=== PATIENT | male | born 1995 | race Two or more races ===

== ENCOUNTER 2020-05-23 20:00 | Emergency (ER) | payer SELFPAY ==
[~2020-05-23] VITALS: Ht 170.2 cm; Wt 106.6 kg
--- NOTE | 2020-05-23 20:06 | NUR ---
ED Nurse Note: Patient brought in by ambulance [id number] from home d/t abdominal and left sided chest pain, patient states it hurts to breathe and reports he was sleeping and was awoken by abdominal and chest pain. Per EMS, patient was seen at [facility] yesterday for the same thing and was discharged home. Patient aao x 4 and ambulatory with steady gait. Patient rates abdominal and chest pain at 8/10, unable to describe quality of pain. Patient changed into gown and placed on desk monitor. No acute distress noted during assessment.
[2020-05-23 20:08] VITALS: BP 132/78
--- NOTE | 2020-05-23 20:11 | Emergency Room Report ---
History of Present Illness General Chief Complaint: Chest Pain Source: Patient Present Illness HPI Patient presents with left-sided chest pain rating up into his neck. He also feels nodularity in his chest wall. He was evaluated at [facility] yesterday and they said nothing was wrong. No treatment was recommended. Patient has trouble sometimes swallowing. He denies fevers or chills. He denies productive cough. There is no nausea, vomiting or diarrhea. No skin rashes. No calf pain or edema. He is stressed at his work and working extra amounts at this time. The patient rates his he rates his pain 8/10. Is somewhat pleuritic , positional and worsened when the chest wall is palpated. There is some neck pain. It is unclear whether this comes from the chest or is present on its own on the left-hand side. The patient does drink alcohol but not daily. Risk factors for cardiac disease: None known No palpitations, nausea, vomiting, diarrhea, dysuria, abdominal pain, shortness of breath, joint pain, rashes, depression, visual changes, dizziness, headache. Allergies: Coded Allergies: No Known Allergies (Unverified , 05/23/20) COVID-19 Screening Contact w/high risk pt: No Experienced COVID-19 symptoms?: No COVID-19 Testing performed ALUMINUM POOL INSTALLER: No Patient History Past Medical History: see triage record Social History: Reports: alcohol use; Denies: smoking, drug use Social History Narrative Works in a kitchen Reviewed Nursing Documentation: PMH: Agreed; PSxH: Agreed Nursing Documentation-PMH Past Medical History: No Stated History Review of Systems All Other Systems: negative except mentioned in HPI Physical Exam Vital Signs Date Time Temp Pulse Resp B/P (MAP) Pulse Ox O2 Delivery O2 Flow Rate FiO2 05/23/20 19:55 98.4 110 20 140/80 (100) 99 Room Air Sp02 EP Interpretation: reviewed, normal General Appearance: well appearing, no apparent distress, GCS 15, non-toxic Head: normocephalic, atraumatic Eyes: bilateral eye normal inspection, bilateral eye PERRL, bilateral eye EOMI ENT: moist mucus membranes Neck: supple Respiratory: lungs clear, normal breath sounds, other - Chest wall tenderness which re-creates the pain with palpation, minimal gynecomastia Cardiovascular #1: no edema, no JVD, tachycardia Cardiovascular #2: 2+ radial (L) Gastrointestinal: normal inspection, normal bowel sounds, non tender, no mass, non-distended Genitourinary: no CVA tenderness Musculoskeletal: back normal, normal range of motion, no calf tenderness, gait/ station normal Neurologic: alert, oriented x3, grossly normal Psychiatric: anxious - But calm Skin: no rash, warm/dry, other - tattoos Medical Decision Making Diagnostic Impression: Primary Impression: Costochondritis, acute Additional Impression: Sinus tachycardia ER Course White count slightly elevated. Patient presents with left-sided chest pain and neck pain. Risk factors are low however we need to exclude cardiac cause, pulmonary bolus, costochondritis, gastritis amongst others. Evaluation with EKG , chest x-ray, soft tissue x-ray of the neck and labs. Patient treated with Reglan and Benadryl initially along with Pepcid. Based on history and clinical exam pulmonary embolus is extremely unlikely. EKG sinus tachycardia otherwise normal EKG. normal troponin. Minimally elevated CPK. Glucose 169. Patient with repeat evaluation and resolution of chest pain with treatment. Discussed findings with patient. Patient given copies of x-rays of the chest, soft tissue neck, EKG and labs. He was advised to follow-up. He states he does not have insurance and was advised to follow-up at the [facility]. No medical emergency at this time. The patient still had sinus tachycardia at discharge. This was discussed with the patient. He states he feels it is due to the lack of rest and exhaustion. Reconsideration of pulmonary embolus however patient saturations 99% and history is against being a pulmonary embolus. Tachycardia improved on discharge. Patient stable for outpatient observation and treatment. Laboratory Tests Test 05/23/20 20:13 05/23/20 20:25 White Blood Count 13.4 K/UL (4.8-10.8) H Red Blood Count 4.94 M/UL (4.70-6.10) Hemoglobin 15.0 G/DL (14.2-18.0) Hematocrit 44.4 % (42.0-52.0) Mean Corpuscular Volume 90 FL (80-99) Mean Corpuscular Hemoglobin 30.4 PG (27.0-31.0) Mean Corpuscular Hemoglobin Concent 33.8 G/DL (32.0-36.0) Red Cell Distribution Width 12.3 % (11.6-14.8) Platelet Count 273 K/UL (150-450) Mean Platelet Volume 7.7 FL (6.5-10.1) Neutrophils (%) (Auto) 54.3 % (45.0-75.0) Lymphocytes (%) (Auto) 37.6 % (20.0-45.0) Monocytes (%) (Auto) 4.6 % (1.0-10.0) Eosinophils (%) (Auto) 2.1 % (0.0-3.0) Basophils (%) (Auto) 1.4 % (0.0-2.0) Prothrombin Time 10.7 SEC (9.30-11.50) Prothrombin Time INR 1.0 (0.9-1.1) Activated Partial Thromboplast Time 20 SEC (23-33) L Sodium Level 139 MMOL/L (136-145) Potassium Level 3.8 MMOL/L (3.5-5.1) Chloride Level 104 MMOL/L (98-107) Carbon Dioxide Level 25 MMOL/L (21-32) Anion Gap 10 mmol/L (5-15) Blood Urea Nitrogen 17 mg/dL (7-18) Creatinine 1.3 MG/DL (0.55-1.30) Estimated Glomerular Filtration Rate > 60 mL/min (>60) Glucose Level 169 MG/DL (74-106) H Calcium Level 9.3 MG/DL (8.5-10.1) Total Bilirubin 0.3 MG/DL (0.2-1.0) Aspartate Amino Transferase (AST) 24 U/L (15-37) Alanine Aminotransferase (ALT) 40 U/L (12-78) Alkaline Phosphatase 95 U/L (46-116) Total Creatine Kinase 360 U/L (26-308) H Troponin I 0.000 ng/mL (0.000-0.056) Pro-B-Type Natriuretic Peptide 8 pg/mL (0-125) Total Protein 7.5 G/DL (6.4-8.2) Albumin 4.2 G/DL (3.4-5.0) Globulin 3.3 g/dL Albumin/Globulin Ratio 1.3 (1.0-2.7) Urine Color Yellow Urine Appearance Clear Urine pH 6 (4.5-8.0) Urine Specific [place] 1.025 (1.005-1.035) Urine Protein 2+ (NEGATIVE) H Urine Glucose (UA) Negative (NEGATIVE) Urine Ketones 1+ (NEGATIVE) H Urine Blood Negative (NEGATIVE) Urine Nitrite Negative (NEGATIVE) Urine Bilirubin Negative (NEGATIVE) Urine Urobilinogen Normal MG/DL (0.0-1.0) Urine Leukocyte Esterase Negative (NEGATIVE) Urine RBC 0 /HPF (0 - 0) Urine WBC 0-2 /HPF (0 - 0) Urine Squamous Epithelial Cells Occasional /LPF Urine Amorphous Sediment Many /LPF (NONE) H Urine Bacteria Few /HPF (NONE) Urine Opiates Screen Negative (NEGATIVE) Urine Barbiturates Screen Negative (NEGATIVE) Phencyclidine (PCP) Screen Negative (NEGATIVE) Urine Amphetamines Screen Negative (NEGATIVE) Urine Benzodiazepines Screen Negative (NEGATIVE) Urine Cocaine Screen Negative (NEGATIVE) Urine Marijuana (THC) Screen Negative (NEGATIVE) EKG Diagnostic Results Rate: tachycardiac Rhythm: NSR ST Segments: no acute changes Rhythm Strip Diag. Results Rhythm: no PVC's, no ectopy, other - Sinus tachycardia 108 Chest X-Ray Diagnostic Results Chest X-Ray Diagnostic Results : Chest X-Ray Ordered: Yes # of Views/Limited/Complete: 1 View Indication: Chest Pain EP Interpretation: Yes Interpretation: no consolidation, no effusion, no pneumothorax Impression: No acute disease Electronically Signed by: Electronically signed by Shemar Jim MD Other X-Ray Diagnostic Results Other X-Ray Diagnostic Results : X-Ray ordered: Soft tissue neck # of Views/Limited Vs Complete: 2 View Interpretation: no dislocation, no soft tissue swelling, no fractures, other - Normal airway Impression: No acute disease Electronically Signed by: Electronically signed by Shemar Jim MD Last Vital Signs Date Time Temp Pulse Resp B/P (MAP) Pulse Ox O2 Delivery O2 Flow Rate FiO2 05/23/20 23:10 98.2 102 24 120/53 100 Room Air Status: improved Disposition: HOME, SELF-CARE Condition: Improved Scripts Ibuprofen* (MOTRIN*) 600 Mg Tablet 600 MG ORAL Q6H PRN for FOR PAIN, #20 TAB 0 Refills Prov: Shemar Jim MD 05/23/20 Shemar Jim MD May 23, 2020 20:11
--- NOTE | 2020-05-23 20:11 | NUR ---
ED Nurse Note: Patient reports nausea, denies vomiting and diarrhea.
[2020-05-23] MEDS ORDERED: Metoclopramide 10mg/2ml Inj IVP ONE (20:15)
[2020-05-23] MEDS ORDERED: DiphenhydrAMINE 50mg/ml Inj IVP ONE (20:15)
[2020-05-23 20:37] LABS: BASOPHILS % (AUTO) 1.4 % (0.0-2.0); EOSINOPHILS % (AUTO) 2.1 % (0.0-3.0); HEMATOCRIT 44.4 % (42.0-52.0); LYMPHOCYTES % (AUTO) 37.6 % (20.0-45.0); MEAN CORPUSCULAR VOLUME 90 FL (80-99); MONOCYTES % (AUTO) 4.6 % (1.0-10.0); NEUTROPHILS % (AUTO) 54.3 % (45.0-75.0); PLATELET COUNT 273 K/UL (150-450); RED BLOOD COUNT 4.94 M/UL (4.70-6.10); RED CELL DISTRIBUTION WIDTH 12.3 % (11.6-14.8); WHITE BLOOD COUNT 13.4 K/UL (4.8-10.8)
[2020-05-23 20:41] LABS: APPEARANCE,URINE CLEAR; BILIRUBIN, URINE NEGATIVE (NEGATIVE); GLUCOSE, URINE (UA) NEGATIVE (NEGATIVE); KETONES,URINE 1+ (NEGATIVE); LEUKOCYTE ESTERASE ,URINE NEGATIVE (NEGATIVE); NITRITE,URINE NEGATIVE (NEGATIVE); PH,URINE 6 (4.5-8.0); PROTEIN,URINE 2+ (NEGATIVE); UROBILINOGEN,URINE NORMAL MG/DL (0.0-1.0)
[2020-05-23 20:42] LABS: COLOR,URINE YELLOW
--- NOTE | 2020-05-23 20:44 | NUR ---
ED Nurse Note: Patient taken to Xray in stable condition
[2020-05-23 20:48] LABS: ANION GAP 10 mmol/L (5-15); BLOOD UREA NITROGEN 17 mg/dL (7-18); CALCIUM 9.3 MG/DL (8.5-10.1); CARBON DIOXIDE 25 MMOL/L (21-32); CHLORIDE 104 MMOL/L (98-107); CREATININE 1.3 MG/DL (0.55-1.30); POTASSIUM 3.8 MMOL/L (3.5-5.1); SODIUM 139 MMOL/L (136-145)
--- NOTE | 2020-05-23 20:53 | NUR ---
ED Nurse Note: Patient returned from Xray in stable condition and placed back on cardiac monitor technician.
[2020-05-23 20:59] LABS: ALANINE AMINOTRANSFERASE 40 U/L (12-78); ALBUMIN 4.2 G/DL (3.4-5.0); ALBUMIN/GLOBULIN RATIO 1.3 (1.0-2.7); ALKALINE PHOSPHATASE 95 U/L (46-116); ASPARTATE AMINO TRANSFERASE 24 U/L (15-37); BILIRUBIN,TOTAL 0.3 MG/DL (0.2-1.0); CREATINE KINASE 360 U/L (26-308)
--- NOTE | 2020-05-23 21:06 | NUR ---
ED Nurse Note: ERMD at bedside
[2020-05-23] MEDS: Ketorolac 30mg Inj IV ONE ×2 (21:15→21:19)
--- NOTE | 2020-05-23 21:20 | NUR ---
ED Nurse Note: Patient states pain is 0/10, declines toradol. Toradol returned to pyxis.
[2020-05-23] MEDS ORDERED: IBUPROFEN600 M1 ORAL (22:28)
[2020-05-23 23:10] VITALS: BP 120/53
--- NOTE | 2020-05-23 23:10 | NUR ---
ER DISCHARGE NOTE: Patient is cleared to be discharged per ERMD, pt is aox4, on room air, with stable vital signs. pt was given dc and prescription instructions, pt was able to verbalize understanding, pt id band and iv site removed intact without complications. pt is able to ambulate with steady gait. pt took all belongings. pt stable upon discharge, no acute distress noted.
--- NOTE | 2020-05-24 10:40 | Diagnostic Imaging Report ---
Indication: Reason For Exam: CP Technique: Single AP view of the chest. Comparison: None. Findings: The cardiomediastinal silhouette is within normal limits. There is no focal consolidation, pneumothorax or pleural effusion. 2 to 3 mm rounded density projecting over the left upper lung likely represents calcified granuloma. Osseous structures demonstrate no acute abnormality. IMPRESSION: No radiographic evidence of acute cardiopulmonary process.
--- NOTE | 2020-05-24 10:54 | Diagnostic Imaging Report ---
Indication: Reason For Exam: CP, dysphasia Technique: Frontal and lateral views of the neck soft tissues Comparison: Same day chest radiograph Findings: Airways are widely patent. There is no prevertebral soft tissue swelling. No evidence of acute fracture or malalignment. No radiopaque foreign body identified. Visualized lung apices are clear. IMPRESSION: Unremarkable radiograph of the cervical soft tissues.
== END 2020-05-23 23:10 | disposition home or self-care (01) ==
LOC: EDBD 20:00 → EMR 20:50 → EDBD 20:50 → EMR 23:10
DX: M94.0 Chondrocostal junction syndrome [Tietze] (principal); R00.0 Tachycardia, unspecified
CPT/HCPCS: 36415; 70360; 71045; 80053; 80307; 81003; 82550; 83880; 84484; 85025; 85610; 85730; 93005; 96361; 96374; 96375; 99284; J1200; J2765; J7030; S0028